=== PATIENT | female | born 1975 | race African-American/Black ===

== ENCOUNTER → 2017-09-05 | Outpatient (CLI) | payer BC ==
[~2017-09-05] MED LIST: ANTI-DEPRESSANT; EPIPEN 2-PAK1 MG/ML IM; PREDNISONE20 MG PO; PRENATAL1 TA1 PO; [UNRECOGNIZED DRUG - OTHER] VG
== END ==
LOC: MC.RAD 09:40
DX: Z12.31 Encounter for screening mammogram for malignant neoplasm of breast (principal)

== ENCOUNTER → 2019-10-29 | Outpatient (CLI) | payer BC | LOC: LIGHT 16:06 | DX: Z02.89 Encounter for other administrative examinations (principal) ==

== ENCOUNTER → 2020-01-09 | Outpatient (CLI) | payer BC | LOC: MC.RAD 11:45 | DX: Z12.31 Encounter for screening mammogram for malignant neoplasm of breast (principal) ==

== ENCOUNTER → 2020-01-29 | Outpatient (CLI) | payer BC ==
[~2020-01-29] VITALS: Ht 160 cm; Wt 92.5 kg
[~2020-01-29] MED LIST changes: +WELLBUTRIN XL300 M1 PO
[2020-01-29 14:39] VITALS: BP 136/72; PULSE 84
== END ==
LOC: LIGHT 11-27 11:43
DX: E66.8 Other obesity (principal); Z68.36 Body mass index [BMI] 36.0-36.9, adult; M54.5 Low back pain; Z98.84 Bariatric surgery status
CPT/HCPCS: G0463

== ENCOUNTER → 2020-08-01 | Outpatient (CLI) | payer BC | LOC: MC.RAD 09:00 | DX: R92.2 Inconclusive mammogram (principal) ==

== ENCOUNTER 2021-01-09 09:32 | Outpatient (RCR) | payer OTHER | END 2021-01-12 11:31 | disposition home or self-care (01) | LOC: WSOH 09:32 | DX: S66.911D Strain of unspecified muscle, fascia and tendon at wrist and hand level, right hand, subsequent encounter (principal); Y99.0 Civilian activity done for income or pay ==

== ENCOUNTER → 2021-08-03 | Outpatient (CLI) | payer BC | LOC: MC.RAD 14:39 | DX: Z12.31 Encounter for screening mammogram for malignant neoplasm of breast (principal) ==